=== PATIENT | male | born 1965 | race Caucasian/White ===

== ENCOUNTER 2023-01-29 15:46 | Emergency (ER) | payer BC, SELFPAY ==
[2023-01-29] VITALS (7 sets, daily range): BP systolic 129–134; BP diastolic 78–92; PULSE 48–57; RESP 18; TEMP 36.2; O2SAT 97–99; BMI 29.8
--- NOTE | 2023-01-29 16:19 | CRLHL7_ITS ---
For Patients: As a result of the Century Cures Act, medical imaging exams and procedure reports are released immediately into your electronic medical record. You may view this report before your referring provider. If you have questions, please contact your health care provider. Indication: Left leg pain and swelling Technique: Sonography of the left lower extremity venous system was performed. Grayscale, grayscale compression, color Doppler, spectral Doppler and augmentation technique was utilized as appropriate. The right common femoral vein was also studied Comparison: 11/23/2021. Findings: The right common femoral vein is patent. There is thrombus identified in the left greater saphenous vein from approximately the mid thigh down to the mid calf. This is apparently new since the prior study. There is DVT identified in 1 of the 2 posterior tibial veins on the left. Thrombus was visualized in this area on the November 23, 2021 study and this is felt to be chronic. DVT is identified in 1 of the 2 peroneal veins which appears to be new. The remainder of the left lower extremity deep venous system shows no evidence of deep venous thrombosis. I discussed this case with Dr. Ahn at 6:25 p.m. on January 30, 2020 Impression: 1. Thrombosis of a significant portion of the greater saphenous vein which is apparently new. 2. There is a combination of acute and chronic DVT in the left lower extremity as described above. Dictated by Bakari Amaro MD @ 01/29/2023 6:29:07 PM (Electronically Signed)
--- NOTE | 2023-01-29 18:30 | ED_ITS ---
HPI - General Adult General Chief complaint: Lower Extremity Swelling Stated complaint: possible blood clot Time Seen by Provider: 01/29/23 16:41 Source: patient Mode of arrival: ambulatory Limitations: no limitations History of Present Illness HPI narrative: 57-year-old male coming in today complaining of left lower extremity discomfort and swelling. Patient states that about a week ago he was drying off in the shower noticed some discomfort in his calf when he went to dry off his calf. Since then the pain has become more intense and his leg is now bit swollen. He denies any fevers or chills. He denies any shortness of breath. No chest pain. Does have history of DVT in that leg October of this year. Occurred right after yet COVID and he was placed on Eliquis for 6 weeks. He denies any recent travel or surgery. Related Data Home Medications Medication Instructions Recorded Confirmed fluoxetine 10 mg capsule 10 mg PO DAILY 01/29/23 01/29/23 hydroxyzine HCl 25 mg tablet 25 mg PO HS PRN 01/29/23 01/29/23 trazodone 50 mg tablet 50 mg PO QPM 01/29/23 01/29/23 Previous Rx's Medication Instructions Recorded apixaban 5 mg (74 tabs) tablets in See Rx Instructions PO .COMPLEX 01/29/23 a dose pack (Eliquis DVT-PE Treat #74 ea 30D Start) Allergies Allergy/AdvReac Type Severity Reaction Status Date / Time No Known Allergies Allergy Verified 05/06/22 13:44 Review of Systems Status of ROS: Reports: 10 or more systems reviewed and unremarkable except as noted in History and below PFSH PFSH Social History Smoking Status: Former smoker Do you use any of these nicotine containing products: None Second hand tobacco smoke exposure: No How often do you have a drink containing alcohol: 2-4 times a month How many standard drinks containing alcohol do you have on a typical day: 5 or 6 How often do you have six or more drinks on one occasion: Monthly AUDIT-C Alcohol total score: 6 Non-prescribed substance use: denies use Exam Narrative: Exam Narrative: Well-nourished well-developed patient in no acute distress. Alert and oriented. Answers questions appropriately. Mood and affect are appropriate. Thoughts are goal oriented and rational. No tangential or magical thinking noted. Patient speaks in full sentences without needing to catch their breath. HEENT: Normocephalic atraumatic. Pupils are equally round reactive to light. Extraocular muscles are intact. Conjunctivae are moist without any icterus noted. Moist mucous membranes. Posterior pharynx is normal. Neck is soft without any lymphadenopathy or thyromegaly. No masses are appreciated. Cardiovascular: Heart is regular rate and rhythm S1 and S2 are present without any murmurs. Lungs: Clear to auscultation bilaterally no wheezes rhonchi or rales are appreciated. Patient takes deep breaths without any discomfort. Abdomen: Soft and nontender nondistended with normal bowel sounds. No guarding or rebound. No masses or organomegaly appreciated. Extremities: Bilateral lower extremities are without edema. Diameter of the left calf is larger than the right. Minimal tenderness to palpation of the calf. Negative Homans sign. Skin: Well perfused without any obvious rashes. Const: Vital Signs, click to edit/add: Vital Signs - 24 hr 01/29/23 16:01 Temperature 97.1 F L Pulse Rate [Pulse Oximeter] 50 L Respiratory Rate 18 Blood Pressure [Ri t Upper Arm] 134/78 Pulse Oximetry 99 Oxygen Delivery Me thod Room Air Course Course Hospital Course: Ultrasound of the lower extremity positive for DVT. Vital Signs Vital signs: Initial Vital Signs Temperature 97.1 F L 01/29/23 16:01 Temperature Source Temporal Artery Scan 01/29/23 16:01 Pulse Rate 50 L 01/29/23 16:01 Respiratory Rate 18 01/29/23 16:01 Blood Pressure 134/78 01/29/23 16:01 Blood Pressure Mean 96 01/29/23 16:01 Blood Pressure Position Sitting 01/29/23 16:01 Pulse Oximetry 99 01/29/23 16:01 Oxygen Delivery Method Room Air 01/29/23 16:01 Vital Signs Temperature 97.1 F L 01/29/23 16:01 Pulse Rate 50 L 01/29/23 16:01 Respiratory Rate 18 01/29/23 16:01 Blood Pressure 134/78 01/29/23 16:01 Pulse Oximetry 99 01/29/23 16:01 Oxygen Delivery Method Room Air 01/29/23 16:01 Temperature 97.1 F L 01/29/23 16:01 Pulse Rate 50 L 01/29/23 16:01 Respiratory Rate 18 01/29/23 16:01 Blood Pressure 134/78 01/29/23 16:01 Pulse Oximetry 99 01/29/23 16:01 Oxygen Delivery Method Room Air 01/29/23 16:01 Medical Decision Making MDM Narrative Medical decision making narrative: 57-year-old male with new DVTs in the setting of an old chronic on that is still present. Will put the patient back on his Eliquis. He is to follow up with primary care provider this coming week. Patient was agreeable had no other questions. Imaging Data Venous US: Attestation: I have reviewed the pertinent imaging results. Radiologist's impression: Sonography of the left lower extremity venous system was performed. Grayscale, grayscale compression, color Doppler, spectral Doppler and augmentation technique was utilized as appropriate. The right common femoral vein was also studied Comparison: 11/23/2021. Findings: The right common femoral vein is patent. There is thrombus identified in the left greater saphenous vein from approximat angelita the mid thigh down to the mid calf. This is apparently new since the prior study. There is DVT identified in 1 of the 2 posterior tibial veins on the left. Thrombus was visualized in this area on the November 23, 2021 study and this is felt to be chronic. DVT is identified in 1 of the 2 peroneal veins which appears to be new. The remainder of the left lower extremity deep venous system shows no evidence of deep venous thrombosis. I discussed this case with Dr. Ahn at 6:25 p.m. on January 30, 2020 Impression: 1. Thrombosis of a significant portion of the greater saphenous vein which is a pparently new. 2. There is a combination of acute and chronic DVT in the left lower extremity as described above. Discharge Plan Discharge Clinical Impression: Deep vein thrombosis (DVT) Patient Disposition: Home, Self-Care Condition: Stable Additional Instructions: Start Eliquis. Follow-up with your primary care provider this coming week. Prescriptions: New Eliquis DVT-PE Treat 30D Start 5 mg (74 tabs) tablets,dose pack See Rx Instructions .ROUTE .COMPLEX Qty: 74 0RF Rx Instructions: orally per package directions No Action fluoxetine 10 mg capsule 10 mg PO DAILY hydroxyzine HCl 25 mg tablet 25 mg PO HS PRN trazodone 50 mg tablet 50 mg PO QPM Follow Up/Referrals: Provider,Not a Local [Primary Care Provider] - Stand Alone Forms: MyHealth Info Instructions
== END 2023-01-29 18:54 | disposition home or self-care (01) ==
PROVIDERS: Emergency Provider Family Medicine
DX: I82.502 Chronic embolism and thrombosis of unspecified deep veins of left lower extremity (principal)
CPT/HCPCS: 93971; 99283; 99284